=== PATIENT | female | born 1950 | race Hispanic/Latino ===

== ENCOUNTER → 2018-01-07 | Outpatient (CLI) | payer OTHER | END | disposition home or self-care (01) | LOC: OIH 10:31 | PROVIDERS: ATTEND Family Medicine | DX: M40.292 Other kyphosis, cervical region (principal) | CPT/HCPCS: 72040 ==

== ENCOUNTER → 2018-02-19 | Outpatient (CLI) | payer OTHER | END | disposition home or self-care (01) | LOC: OIH 11:14 | PROVIDERS: ATTEND Family Medicine | DX: M17.12 Unilateral primary osteoarthritis, left knee (principal) | CPT/HCPCS: 73562 ==

== ENCOUNTER 2018-08-06 20:45 | Emergency (ER) | payer OTHER | END 2018-08-06 23:35 | disposition home or self-care (01) | LOC: EDH 20:45 | DX: S80.11XA Contusion of right lower leg, initial encounter (principal); M25.551 Pain in right hip; M25.561 Pain in right knee; E11.9 Type 2 diabetes mellitus without complications; E78.5 Hyperlipidemia, unspecified; I10 Essential (primary) hypertension; Z90.710 Acquired absence of both cervix and uterus; W01.0XXA Fall on same level from slipping, tripping and stumbling without subsequent striking against object, initial encounter; Y93.89 Activity, other specified; Y92.89 Other specified places as the place of occurrence of the external cause; Y99.8 Other external cause status | CPT/HCPCS: 73502; 73560; 73590 ==

== ENCOUNTER → 2018-11-17 | Outpatient (CLI) | payer OTHER | END | disposition home or self-care (01) | LOC: OIH 10:24 | PROVIDERS: ATTEND Family Medicine | DX: M19.072 Primary osteoarthritis, left ankle and foot (principal); M77.32 Calcaneal spur, left foot; I70.0 Atherosclerosis of aorta; M47.815 Spondylosis without myelopathy or radiculopathy, thoracolumbar region; I10 Essential (primary) hypertension | CPT/HCPCS: 71046; 73610; 73630 ==

== ENCOUNTER 2019-01-03 05:09 | Emergency (ER) | payer OTHER ==
[2019-01-03] MEDS ORDERED: ONDANSETRON HCL 4 MG/2 ML VIAL ONE (05:51)
[2019-01-03] MEDS ORDERED: 0.9% SODIUM CHLORIDE 1000 ML IV BAG IV ONE (06:00)
[2019-01-03 06:29] LABS: CREATININE 0.9 mg/dL (0.5-1.5); POTASSIUM 3.7 mmol/L (3.5-5.1)
[2019-01-03 06:35] LABS: ALBUMIN 3.5 g/dL (3.5-5.0); BILIRUBIN,TOTAL 0.6 mg/dL (0.2-1.0)
[2019-01-03 07:39] LABS: BASOPHILS % (AUTO) 0.2 % (0.0-5.0); HEMATOCRIT 42.6 % (36-48); MEAN CORPUSCULAR HEMOGLOBIN 31.5 pg (27.0-33.0); MEAN CORPUSCULAR HGB CONC 33.3 g/dL (32.0-36.0); MEAN CORPUSCULAR VOLUME 94.6 fL (79-99); NEUTROPHILS % (AUTO) 85.8 % (40.0-77.0); PLATELET COUNT (AUTO) 245 K/uL (130-400); RED CELL DISTRIBUTION WIDTH 13.5 % (11.0-15.5)
== END 2019-01-03 10:05 | disposition home or self-care (01) ==
LOC: EDH 05:09
DX: K52.9 Noninfective gastroenteritis and colitis, unspecified (principal); E78.5 Hyperlipidemia, unspecified; I10 Essential (primary) hypertension; E11.9 Type 2 diabetes mellitus without complications; F32.9 Major depressive disorder, single episode, unspecified
CPT/HCPCS: 36415; 74176; 80053; 83690; 85025; 93005; 96361; 96374; 99284; J2405; J7030

== ENCOUNTER → 2019-08-27 | Outpatient (CLI) | payer OTHER | END | disposition home or self-care (01) | LOC: RAH 13:41 | PROVIDERS: ATTEND Family Medicine | DX: I70.211 Atherosclerosis of native arteries of extremities with intermittent claudication, right leg (principal); R60.0 Localized edema | CPT/HCPCS: 93971 ==

== ENCOUNTER 2019-08-30 11:42 | Emergency (ER) | payer OTHER ==
[2019-08-30] MEDS ORDERED: KETOROLAC TROMETHAMINE 30MG/ML ONE (12:10)
== END 2019-08-30 15:07 | disposition home or self-care (01) ==
LOC: EDH 11:42
DX: G89.29 Other chronic pain (principal); M79.651 Pain in right thigh; I10 Essential (primary) hypertension; E78.5 Hyperlipidemia, unspecified; E11.9 Type 2 diabetes mellitus without complications; F32.9 Major depressive disorder, single episode, unspecified
CPT/HCPCS: 72131; 72170; 96372; 99284; J1885

== ENCOUNTER → 2019-12-17 | Outpatient (CLI) | payer OTHER | END | disposition home or self-care (01) | LOC: OIH 11:05 | PROVIDERS: ATTEND Family Medicine | DX: M47.812 Spondylosis without myelopathy or radiculopathy, cervical region (principal); M89.38 Hypertrophy of bone, other site; I70.0 Atherosclerosis of aorta; I10 Essential (primary) hypertension | CPT/HCPCS: 71046; 72040 ==

== ENCOUNTER → 2019-12-23 | Outpatient (CLI) | payer OTHER | END | disposition home or self-care (01) | LOC: RAH 11:12 | PROVIDERS: ATTEND Family Medicine | DX: Z12.31 Encounter for screening mammogram for malignant neoplasm of breast (principal); R10.2 Pelvic and perineal pain; Z90.49 Acquired absence of other specified parts of digestive tract; Z90.710 Acquired absence of both cervix and uterus | CPT/HCPCS: 76856; 77067 ==

== ENCOUNTER → 2021-02-21 | Outpatient (CLI) | payer OTHER | END | disposition home or self-care (01) | LOC: OIH 10:54 | PROVIDERS: ATTEND Family Medicine | DX: I10 Essential (primary) hypertension (principal) | CPT/HCPCS: 71046 ==

== ENCOUNTER → 2021-07-31 | Outpatient (CLI) | payer OTHER | END | disposition home or self-care (01) | LOC: OIH 11:06 | PROVIDERS: ATTEND Family Medicine | DX: R07.9 Chest pain, unspecified (principal); M51.35 Other intervertebral disc degeneration, thoracolumbar region | CPT/HCPCS: 71046 ==

== ENCOUNTER → 2021-08-14 | Outpatient (CLI) | payer OTHER ==
[~2021-08-14] MED LIST: REGADENOSON 0.4 MG/5 ML PF SYG IVP SCH
== END | disposition home or self-care (01) ==
LOC: RAH 08:59
PROVIDERS: ATTEND Family Medicine
DX: I20.9 Angina pectoris, unspecified (principal); R07.9 Chest pain, unspecified
CPT/HCPCS: 78452; 93017; 96374; A9500 ×2; J2785

== ENCOUNTER 2022-06-24 14:35 | Emergency (ER) | payer OTHER ==
[~2022-06-24] VITALS: Ht 162.6 cm; Wt 81.6 kg
[2022-06-24 14:54] LABS: BASOPHILS % (AUTO) 0.2 % (0.0-5.0); EOSINOPHILS % (AUTO) 0.1 % (0.0-8.0); HEMATOCRIT 37.5 % (36-48); LYMPHOCYTES % (AUTO) 4.3 % (21.0-51.0); MEAN CORPUSCULAR HEMOGLOBIN 30.9 pg (27.0-33.0); MEAN CORPUSCULAR HGB CONC 33.9 g/dL (32.0-36.0); MEAN CORPUSCULAR VOLUME 91.2 fL (79-99); MONOCYTES % (AUTO) 2.6 % (3.0-13.0); NEUTROPHILS % (AUTO) 92.5 % (40.0-77.0); PLATELET COUNT (AUTO) 202 K/uL (130-400); RED BLOOD CELL COUNT(AUTO) 4.11 MIL/uL (4.00-5.50); RED CELL DISTRIBUTION WIDTH 12.9 % (11.0-15.5); WHITE BLOOD COUNT (AUTO) 12.2 K/uL (4.8-10.8)
[2022-06-24] MEDS ORDERED: ACETAMINOPHEN 500 MG TABLET PO ONE (15:00)
[2022-06-24] MEDS ORDERED: 0.9%NACL 1000ML 1,000 ML IV SCH (15:00)
[2022-06-24] MEDS ORDERED: IBUPROFEN 800 MG TAB PO ONE (15:00)
[2022-06-24 15:22] LABS: ALBUMIN 3.2 g/dL (3.5-5.0); CRP QUANTITATIVE 44.3 mg/L (0.00-9.0); POTASSIUM 3.9 mmol/L (3.5-5.1)
[2022-06-24 15:46] VITALS: BP 137/53
[2022-06-24 15:51] LABS: APPEARANCE,URINE CLOUDY (CLEAR); BILIRUBIN,URINE NEGATIVE (NEGATIVE); COLOR,URINE YELLOW (YELLOW); GLUCOSE, URINE (UA) NEGATIVE (NEGATIVE); KETONES,URINE NEGATIVE (NEGATIVE); LEUKOCYTE ESTERASE ,URINE MODERATE (NEGATIVE); NITRATE,URINE POSITIVE (NEGATIVE); OCCULT BLOOD,URINE MODERATE (NEGATIVE); PH,URINE 6.5 (5.0-8.0); PROTEIN,URINE 30 mg/dL (NEGATIVE); UROBILINOGEN,URINE 0.2 mg/dL (0.2-1.0)
[2022-06-24] MEDS ORDERED: CEFTRIAXONE 1G VIAL ONE (16:07)
[2022-06-24] MEDS ORDERED: CEPH500B PO (16:09)
[2022-06-24] MEDS ORDERED: ACET-2247 PO (16:09)
[2022-06-24] MEDS ORDERED: CEFTRIAXONE 1G VIAL IVP ONE (16:30)
[2022-06-24 16:43] LABS: BACTERIA,URINE Few /HPF (None Seen); MUCUS,URINE Rare LPF (None Seen); SQUAMOUS EPITHELIAL CELL,UR Rare /HPF (0-2); WBC,URINE 26-50 /HPF (0-1)
== END 2022-06-24 16:27 | disposition home or self-care (01) ==
LOC: EDH 14:35
DX: N39.0 Urinary tract infection, site not specified (principal); E86.0 Dehydration; E11.65 Type 2 diabetes mellitus with hyperglycemia; E66.9 Obesity, unspecified; Z20.822 Contact with and (suspected) exposure to COVID-19; Z68.30 Body mass index [BMI] 30.0-30.9, adult
CPT/HCPCS: 99284; 96374; 71045; 87635; 96361; 80053; 85025; 87040 ×2; 87077; 87088; 87186; 87804 ×2; 83605; 86140; 81001; 36415; C9803; J7030; J0696

== ENCOUNTER 2022-06-28 20:24 | Emergency (ER) | payer OTHER ==
[~2022-06-28 20:24] MED LIST changes: +ACET-2247 PO; +CEPH500B PO; -REGADENOSON 0.4 MG/5 ML PF SYG IVP SCH
== END 2022-06-28 20:27 | disposition left against medical advice (07) ==
LOC: EDH 20:24
DX: R51.9 Headache, unspecified (principal); R50.9 Fever, unspecified; Z53.21 Procedure and treatment not carried out due to patient leaving prior to being seen by health care provider

== ENCOUNTER → 2022-07-12 | Outpatient (CLI) | payer OTHER | END | disposition home or self-care (01) | LOC: RAH 13:21 | PROVIDERS: ATTEND Family Medicine | DX: Z12.31 Encounter for screening mammogram for malignant neoplasm of breast (principal) | CPT/HCPCS: 77067 ==

== ENCOUNTER → 2023-09-27 | Outpatient (CLI) | payer OTHER | END | disposition home or self-care (01) | LOC: RAH 11:40 | PROVIDERS: ATTEND Family Medicine | DX: Z12.31 Encounter for screening mammogram for malignant neoplasm of breast (principal) | CPT/HCPCS: 77067 ==

== ENCOUNTER 2023-11-02 11:14 | Emergency (ER) | payer OTHER ==
[~2023-11-02] VITALS: Ht 152.4 cm; Wt 79.4 kg
[2023-11-02 11:58] LABS: CREATININE 0.8 mg/dL (0.5-1.5); POTASSIUM 4.2 mmol/L (3.5-5.1)
[2023-11-02 12:03] LABS: ALBUMIN 3.8 g/dL (3.5-5.0); BILIRUBIN,TOTAL 0.5 mg/dL (0.2-1.0); TOTAL PROTEIN, SERUM 7.3 g/dL (6.0-8.3)
[2023-11-02 12:06] LABS: BASOPHILS # (AUTO) 0.02 K/uL (0.00-0.20); BASOPHILS % (AUTO) 0.3 % (0.0-5.0); EOSINOPHILS # (AUTO) 0.03 K/uL (0.00-0.70); EOSINOPHILS % (AUTO) 0.4 % (0.0-8.0); HEMATOCRIT 39.5 % (36-48); IMMATURE GRANULOCYTE ABSOLUTE 0.02 K/uL (0-1); LYMPHOCYTES # (AUTO) 1.4 K/uL (1.0-4.8); LYMPHOCYTES % (AUTO) 21.3 % (21.0-51.0); MEAN CORPUSCULAR HGB CONC 34.2 g/dL (32.0-36.0); MEAN CORPUSCULAR VOLUME 90.8 fL (79-99); MONOCYTES # (AUTO) 0.5 K/uL (0.1-1.0); MONOCYTES % (AUTO) 7.7 % (3.0-13.0); NEUTROPHILS # (AUTO) 4.7 K/uL (1.8-7.7); PLATELET COUNT (AUTO) 236 K/uL (130-400); RED BLOOD CELL COUNT(AUTO) 4.35 MIL/uL (4.00-5.50); RED CELL DISTRIBUTION WIDTH 13.1 % (11.0-15.5); WHITE BLOOD COUNT (AUTO) 6.8 K/uL (4.8-10.8)
[2023-11-02 12:11] LABS: APPEARANCE,URINE CLEAR (CLEAR); BILIRUBIN,URINE NEGATIVE (NEGATIVE); COLOR,URINE LIGHT-YELLOW (YELLOW); GLUCOSE, URINE (UA) NEGATIVE (NEGATIVE); KETONES,URINE NEGATIVE (NEGATIVE); LEUKOCYTE ESTERASE ,URINE 75 Leu/uL (NEGATIVE); NITRATE,URINE NEGATIVE (NEGATIVE); OCCULT BLOOD,URINE NEGATIVE (NEGATIVE); PROTEIN,URINE NEGATIVE (NEGATIVE); UROBILINOGEN,URINE 0.2 mg/dL (0.2-1.0)
[2023-11-02 12:12] LABS: ADD UA MICROSCOPIC YES
[2023-11-02 12:14] LABS: BACTERIA,URINE RARE /HPF (None Seen); RBC,URINE 0-1 /HPF (0-1); SQUAMOUS EPITHELIAL CELL,UR MOD /HPF (0-2)
[2023-11-02] MEDS ORDERED: NITROGLYCERIN 1GM OINT 1 INCH/1GM TD ONE (12:30)
[2023-11-02] MEDS ORDERED: AMLODIPINE 5 MG TAB PO ONE (14:30)
[2023-11-02] MEDS ORDERED: PREDNISONE 20 MG TABLET PO ONE (14:30)
[2023-11-02] MEDS ORDERED: MECLIZINE HCL 25 MG TABLET PO ONE (14:30)
[2023-11-02] MEDS ORDERED: AMLO5TAB4 PO (15:18)
[2023-11-02] MEDS ORDERED: MECL-302 PO (15:18)
[2023-11-02] MEDS ORDERED: MACR100 PO (15:18)
[2023-11-02] MEDS ORDERED: FLUT16H NASAL (15:18)
[2023-11-02] MEDS ORDERED: CEFTRIAXONE 1G VIAL IVPB ONE (15:30)
[2023-11-02 15:44] VITALS: BP 139/74; PULSE 68; RESP 18; O2SAT 99
== END 2023-11-02 15:43 | disposition home or self-care (01) ==
LOC: EDH 11:14
DX: N39.0 Urinary tract infection, site not specified (principal); H81.391 Other peripheral vertigo, right ear; I10 Essential (primary) hypertension; E10.9 Type 1 diabetes mellitus without complications; E78.00 Pure hypercholesterolemia, unspecified; Z79.899 Other long term (current) drug therapy
CPT/HCPCS: 99285; 96374; 70450; 71045; 84484; 80053; 85025; 87088; 81001; 36415; 93005; J0696

== ENCOUNTER 2024-08-30 19:05 | Emergency (ER) | payer OTHER ==
[~2024-08-30] VITALS: Ht 152.4 cm; Wt 72.6 kg
[~2024-08-30 19:05] MED LIST changes: +AMLO5TAB4 PO; +FLUT16H NASAL; +MACR100 PO; +MECL-302 PO
--- NOTE | 2024-08-30 19:13 | ERN ---
ED Note History of Present Illness Stated Complaint: FEVER, N/V/D ABD PAIN Chief Complaint: Sepsis Time Seen by MD: 19:07 Dictation: PATIENT IS A 74-YEAR-OLD FEMALE HERE WITH NAUSEA VOMITING AND DIARRHEA WITH FEVER CHILLS AND BILATERAL FLANK PAIN FOR TWO DAYS. SHE STATES IT GOT WORSE TODAY. , DENIES ANY ABDOMINAL PAIN NO SORE THROAT NO COUGH NO CHEST PAIN. Allergies: Coded Allergies: No Known Allergies (Unverified Allergy, Unknown, 08/30/19) No Known Drug Allergies (Unverified Allergy, Unknown, 06/24/22) Home Meds Active Scripts Fluticasone Propionate (Flonase Nasal [place]) 50 Mcg/Actuation [place], 2 SPRAY NASAL DAILY for 10 Days, #1 SPRAY 0 Refills Prov:HEMANTH MIRELES MD 11/02/23 Nitrofurantoin/Nitrofuran Mac (Macrobid) 100 Mg Cap, 1 CAP PO BID for 7 Days, #14 CAP 0 Refills Prov:HEMANTH MIRELES MD 11/02/23 Meclizine HCl (Meclizine HCl) 25 Mg Tablet, 25 MG PO TIDP PRN for DIZZINESS, #30 TAB 0 Refills Prov:HEMANTH MIRELES MD 11/02/23 Amlodipine Besylate (Norvasc 5Mg Tab) 5 Mg Tablet, 5 MG PO DAILY, #10 TAB 0 Refills Prov:HEMANTH MIRELES MD 11/02/23 Acetaminophen (Tylenol) 325 Mg Tablet, 650 MG PO Q4H, #50 TAB Prov:JUAN WINN 06/24/22 Cephalexin Monohydrate (Keflex) 500 Mg Cap, 500 MG PO TID for 7 Days, #21 CAP Prov:JUAN WINN 06/24/22 Past Medical History Past Medical History: Asthma, Diabetes-Type I, High Cholesterol, Hypertension Surgical History: Unknown PSYCH History: no pertinent psych hx Family History: Negative Social History: Negative History: Not Applicable RN Note Reviewed/Agreed w/PFSH: Yes Review of System Dictation CONSTITUTIONAL: NEGATIVE EXCEPT FOR HPI FEVER CHILLS HEAD/FACE: NEGATIVE EXCEPT FOR HPI EENT: NEGATIVE EXCEPT FOR HPI RESPIRATORY: NEGATIVE EXCEPT FOR HPI GASTROINTESTINAL/ABDOMINAL: NEGATIVE EXCEPT FOR HPI BILATERAL FLANK PAIN WITH NAUSEA VOMITING AND DIARRHEA GENITOURINARY: NEGATIVE EXCEPT FOR HPI MUSCULOSKELETAL: NEGATIVE EXCEPT FOR HPI INTEGUMENTARY: NEGATIVE EXCEPT FOR HPI NEUROLOGICAL/PSYCH: NEGATIVE EXCEPT FOR HPI HEMATOLOGIC/LYMPHATIC: NEGATIVE EXCEPT FOR HPI ALL SYSTEMS NEGATIVE, EXCEPT NOTED ABOVE. 13 POINT REVIEW OF SYSTEMS ASSESSED AND ALL NEGATIVE EXCEPT FOR ABOVE. Initial Vital Sign VS Vital Signs Date Time Temp Pulse Resp B/P (MAP) Pulse Ox O2 Delivery O2 Flow Rate FiO2 08/30/24 19:07 102.7 96 20 175/81 97 Room Air 08/30/24 19:35 0 21 Physical Exam Dictation VITAL SIGNS REVIEWED GENERAL APPEARANCE: ALERT, ORIENTED X 3, MILD ACUTE DISTRESS, WELL DEVELOPED, NOURISHED. HEAD AND FACE: NON-TRAUMATIC. EYES: PERRL, PINK CONJUNCTIVAS, EYELID NO TRAUMA, ANTERIOR CHAMBER WITH ARCUS SENILIS. EARS: PINNAS INTACT AND NO SIGNS OF TRAUMA OR ERYTHEMA EAR CANALS CLEAR AND NO DISCHARGE TM NO ERYTHEMA NOSE: NO DISCHARGE, NO BLEEDING. OROPHARYNX: MOUTH NORMAL, TONGUE PINK, PHARYNX CLEAR,NO ERYTHEMA, TONSILS NO EXUDATES, NO ABSCESSES NOTED, MUCOUS MEMBRANE MOIST NECK: SUPPLE, NON-TENDER, NO THYROMEGALY, NO MASSES, NO JVD, NO BRUITS BREAST:DEFERRED CHEST:NO TENDERNESS, NO CREPITUS, NO PARADOXICAL MOVEMENT, NO RETRACTIONS LUNGS:CLEAR, WELL-VENTILATED, SYMMETRIC, NO RALES, NO WHEEZING, NO RHONCHI, NO STRIDOR, GOOD BREATH SOUNDS BILATERALLY HEART: REGULAR RATE, REGULAR RHYTHM, NO MURMUR, NO GALLOPS VASCULAR: NO PERIPHERAL EDEMA, ABDOMEN: SOFT, POSITIVE BOWEL SOUNDS, NONDISTENDED, NO GUARDING, NONTENDER, NO REBOUND, NO MASSES NO HEPATOMEGALY, NO SPLENOMEGALY, NO FLOWERS'S SIGN, NO HERNIAS. NO FOCAL TENDERNESS, NEGATIVE CVAT BILATERALLY RECTAL: DEFERRED GENITAL: DEFERRED NEUROLOGICAL: NORMAL SPEECH, MOTOR FUNCTION INTACT, SENSORY FUNCTION INTACT MUSCULOSKELETAL: NECK NONTENDER, FULL RANGE OF MOTION, BACK NONTENDER, FULL RANGE OF MOTION, EXTREMITIES: NONTENDER, FULL RANGE OF MOTION SKIN: COLOR PINK, DRY, NO TURGOR, NO RASH, NO LACERATIONS, NO ABRASIONS, NO CONTUSIONS. LYMPHATIC: DEFERRED Results (Laboratory/Radiology) Laboratory/Radiology Laboratory Tests Test 08/30/24 19:20 08/30/24 19:39 08/30/24 20:51 White Blood Count 8.2 K/uL (4.8-10.8) Red Blood Count 4.00 MIL/uL (4.00-5.50) Hemoglobin 12.5 g/dL (12.0-16.0) Hematocrit 36.0 % (36-48) Mean Corpuscular Volume 90.0 fL (79-99) Mean Corpuscular Hemoglobin 31.3 pg (27.0-33.0) Mean Corpuscular Hemoglobin Concent 34.7 g/dL (32.0-36.0) Red Cell Distribution Width 12.6 % (11.0-15.5) Platelet Count 210 K/uL (130-400) Mean Platelet Volume 10.2 fL (7.5-10.5) Immature Granulocyte % (Auto) 0.4 % (0-1) Neutrophils (%) (Auto) 77.7 % (40.0-77.0) H Lymphocytes (%) (Auto) 16.3 % (21.0-51.0) L Monocytes (%) (Auto) 5.0 % (3.0-13.0) Eosinophils (%) (Auto) 0.2 % (0.0-8.0) Basophils (%) (Auto) 0.4 % (0.0-5.0) Neutrophils # (Auto) 6.4 K/uL (1.8-7.7) Lymphocytes # (Auto) 1.3 K/uL (1.0-4.8) Monocytes # (Auto) 0.4 K/uL (0.1-1.0) Eosinophils # (Auto) 0.02 K/uL (0.00-0.70) Basophils # (Auto) 0.03 K/uL (0.00-0.20) Absolute Immature Granulocyte (auto 0.03 K/uL (0-1) Nucleated Red Blood Cells 0.0 % (0.0-0.19) Sodium Level 137 mmol/L (136-145) Potassium Level 4.7 mmol/L (3.5-5.1) Chloride Level 101 mmol/L (101-111) Carbon Dioxide Level 28 mmol/L (21-32) Blood Urea Nitrogen 20 mg/dL (7-18) H Creatinine 1.6 mg/dL (0.5-1.0) H Glomerular Filtration Rate Calc 33 mL/min (>90) Random Glucose 154 mg/dL (70-105) H Whole Blood Ketones Quantitative 0.4 mmol/L (0.0-0.6) Lactic Acid Level 3.0 mmol/L (0.8-2.5) H 2.1 mmol/L (0.8-2.5) Total Calcium 9.1 mg/dL (8.5-10.1) Influenza Type A Antigen Negative For Type A Influenza Type B Antigen Negative For Type B SARS-CoV-2 Antigen (Rapid) PRESUMPTIVE NEGATIVE Group A Streptococcus Rapid positive (NEGATIVE) *A Urine Color LIGHT-YELLOW (YELLOW) Urine Appearance CLEAR (CLEAR) Urine pH 5.5 (5.0-8.0) Urine Specific [place] 1.005 (1.001-1.031) Urine Protein NEGATIVE mg/dL (NEGATIVE) Urine Glucose (UA) NEGATIVE mg/dL (NEGATIVE) Urine Ketones NEGATIVE mg/dL (NEGATIVE) Urine Occult Blood NEGATIVE (NEGATIVE) Urine Nitrate NEGATIVE (NEGATIVE) Urine Bilirubin NEGATIVE mg/dL (NEGATIVE) Urine Urobilinogen 0.2 mg/dL (0.2-1.0) Urine Leukocyte Esterase 250 Jori/uL (NEGATIVE) H Urine RBC 0-1 /HPF (0-1) Urine WBC 26-50 /HPF (0-1) H Urine Squamous Epithelial Cells RARE /HPF (0-2) Urine Bacteria RARE /HPF (None Seen) Labs Reviewed?: Yes ED Course ED Course Orders Procedure Category Date Status Time Ketone Blood LAB 08/30/24 Complete Quantitative 19:09 Cbc With Differential LAB 08/30/24 Complete 19:09 Blood Cult LUIS 08/30/24 In Process 19:09 Urinalysis Profile LAB 08/30/24 Complete 19:09 Lactic Acid LAB 08/30/24 Complete 19:09 Ceftriaxone 2gm Vial PHA 08/30/24 Complete (Rocephin 2gm Inj) 19:30 Basic Metabolic Panel LAB 08/30/24 Complete 19:09 0.9%Nacl 1000ml (Ns PHA 08/30/24 Complete 1000ml) 19:30 Ketorolac PHA 08/30/24 Complete Tromethamine 15mg/Ml 19:30 Ondansetron 4mg Inj PHA 08/30/24 Complete (Zofran 4mg Inj) 19:30 Covid19 (Sars Antigen LAB 08/30/24 Complete Rapid) 19:12 Influenza Type A & B, LAB 08/30/24 Complete Rapid 19:12 Rapid (Group A Strep) LAB 08/30/24 Complete 19:20 0.9%Nacl 1000ml (Ns PHA 08/30/24 In Process 1000ml) 20:00 Culture Urine LUIS 08/30/24 In Process 20:10 Lactic Acid LAB 08/30/24 Complete 20:39 Amox/Clav 875/125mg PHA 08/30/24 In Process Tab (Augmentin 875-1 21:30 Current Medications Medications (Trade) Dose Ordered Sig/Marilia Route PRN Reason Start Time Stop Time Status Last Admin Dose Admin Amoxicillin/ Clavulanate Potassium (Augmentin 875-125 Tablet) 1 each ONCE ONCE PO 08/30/24 21:30 08/30/24 21:31 Ceftriaxone Sodium (Rocephin 2gm Inj) 2 gm ONCE ONCE IVPB 08/30/24 19:30 08/30/24 19:31 DC 08/30/24 19:47 Ketorolac Tromethamine (toRADol) 15 mg ONCE ONCE IV 08/30/24 19:30 08/30/24 19:31 DC 08/30/24 19:46 Ondansetron HCl (zoFRAN 4MG INJ) 4 mg ONCE ONCE IVP 08/30/24 19:30 08/30/24 19:31 DC 08/30/24 19:46 Sodium Chloride 1,000 ml @ 0 mls/hr ONCE ONCE IV 08/30/24 19:30 08/30/24 19:31 DC 08/30/24 19:47 Sodium Chloride 2,178 ml @ 726 mls/hr ONCE ONCE IV 08/30/24 20:00 08/30/24 22:59 08/30/24 20:42 Vital Signs Date Time Temp Pulse Resp B/P (MAP) Pulse Ox O2 Delivery O2 Flow Rate FiO2 08/30/24 19:35 102.7 24 18 158/84 98 Room Air* 0 21 08/30/24 19:07 102.7 96 20 175/81 97 Room Air 2102 PATIENT IS HEMODYNAMICALLY STABLE, LACTIC ACID 2.1 AFTER TREATMENT OF 30 PER KILOS FLUIDS AND2 G OF ROCEPHIN. ONLY SIGNIFICANT CLINICAL FINDINGS ARE STREPTOCOCCAL PHARYNGITIS PATIENT WE WILL BE DISCHARGED HOME WITH A [id number] P.O. B.I.D. BLOOD PRESSURE 135/82/HEART RATE 80/PATIENT AFEBRILE/SATURATIONS 98 99%. PATIENT DOES NOT WANT TO BE ADMITTED TO THE HOSPITAL AND AGREES SHE WILL COME BACK IF SHE FEELS WORSE OTHERWISE SHE SAID SHE WILL SEE HER PRIMARY CARE DOCTOR. Medical Decision Making MDM MDM: DIFFERENTIAL DIAGNOSIS: SEPSIS/DKA/ELECTROLYTE IMBALANCE/DEHYDRATION/PYELONEPHROSIS/UTI RATIONALE: TESTS CONSIDERED AND ORDERED SECONDARY TO SHARED DECISION MAKING INCLUDE: LABS/UA PREVIOUS OUTSIDE RECORDS REVIEWED: OLD ER VISITS. REVIEWED RISK OF COMPLICATION AND/OR MORBIDITY OR MORTALITY OF PATIENT MANAGEMENT: NONE NONE MEDICATIONS-PER MEDICATION RECONCILIATION NEED FOR HOSPITALIZATION: PATIENT DOES NOT MEET CRITERIA FOR HOSPITALIZATION. NO NEED FOR EMERGENCY MAJOR/MINOR SURGERY: NO THERE ARE NO SOCIAL CONCERNS WITH THIS PATIENT. PRESCRIPTION DRUG MANAGEMENT AUGMENTIN/TYLENOL PRESCRIPTIONS WILL INCLUDE SYMPTOMATIC CARE PATIENT'S PRIOR EXTERNAL MEDICAL RECORDS FROM OTHER ER VISITS WERE REVIEWED BY ME INDICATED. PRIOR TESTING AND RESULTS FROM PREVIOUS VISITS WERE REVIEWED. PRIOR TESTS WERE TAKEN INTO ACCOUNT WITH MEDICAL DECISION MAKING AND RESOURCE UTILIZATION, INDEPENDENT HISTORIAN/HISTORIANS WERE USED TO OBTAIN COMPLETE MEDICAL HISTORY. I INDEPENDENTLY INTERPRETED THE TEST THAT WERE PERFORMED, RESULTS WERE REVIEWED BY ME AND CONSIDERED FINDINGS ON RADIOLOGY IF ORDERED. MEDICAL MANAGEMENT AND EXAMINATION INTERPRETATION DISCUSSIONS WERE HAD BY ME WITH OTHER QUALIFIED HEALTHCARE PROFESSIONALS INDICATED FOR THE PATIENT'S CARE. DX & DISP Disposition: Discharge Departure Impression: Primary Impression: Acute streptococcal tonsillitis Additional Impressions: Chronic kidney disease, Uncontrolled diabetes mellitus, Sepsis Condition: Stable Scripts Amoxicillin/Potassium Clav (Amox Tr-K Clv 875-125 mg Tab) 875 Mg-125 Mg Tablet 1 EACH PO BID for 7 Days, #14 TAB 0 Refills Prov: YOLETTE FLAHERTY NP 08/30/24 Additional Instructions: FOLLOW-UP WITH PRIMARY CARE PROVIDER IN 1 TO 2 DAYS. TAKE MEDICATIONS DIRECTED HERE IN THE EMERGENCY ROOM. OKAY TO CONTINUE HOME MEDICATIONS UNLESS OTHERWISE DISCUSSED DURING YOUR VISIT IN THE EMERGENCY ROOM TODAY. RETURN TO YOUR NEAREST EMERGENCY ROOM IF SYMPTOMS WORSEN OR IF THERE IS NO IMPROVEMENT. CALL 911 IF YOU NEED IMMEDIATE ASSISTANCE. TAKE TYLENOL OR MOTRIN [id number] NEEDED AND IF NO CONTRAINDICATIONS ARE PRESENT. INCREASE ORAL HYDRATION. A WOUND CULTURE OR URINE CULTURE WAS ORDERED HERE IN THE EMERGENCY ROOM DEPARTMENT PLEASE FOLLOW-UP WITH PRIMARY CARE PROVIDER AND ADVISE THEM TO GET REPEAT PORTS FROM OUR FACILITY. IF YOU HAD ANY ELOISE WRAP/SPLINTS THAT WERE APPLIED HERE, PLEASE DO NOT REMOVE THEM UNTIL YOU SEE YOUR PRIMARY CARE OR SPECIALTY. TAKE ANTIBIOTICS DIRECTED UNTIL GONE. , INCREASE YOUR WATER INTAKE. SEE YOUR PRIMARY CARE DOCTOR IN 1-2 DAYS. Referrals: WALLACE KENNEY MD (PCP) Time of Disposition: 21:07 I have reviewed the case, and I agree with, Diagnosis and Plan YOLETTE FLAHERTY NP Aug 30, 2024 19:13
[2024-08-30] MEDS: ketOROlac 15MG/ML VIAL (15MG/ML) IV ONE (19:46)
[2024-08-30] MEDS: ondanSETRON 4MG INJ IVP ONE (19:46)
[2024-08-30] MEDS: CEFTRIAXONE 2GM VIAL IVPB ONE (19:47)
[2024-08-30] MEDS: 0.9%NACL 1000ML 1,000 ML IV ONE (19:47)
[2024-08-30 19:48] LABS: BASOPHILS # (AUTO) 0.03 K/uL (0.00-0.20); BASOPHILS % (AUTO) 0.4 % (0.0-5.0); EOSINOPHILS # (AUTO) 0.02 K/uL (0.00-0.70); EOSINOPHILS % (AUTO) 0.2 % (0.0-8.0); IMMATURE GRANULOCYTE ABSOLUTE 0.03 K/uL (0-1); LYMPHOCYTES # (AUTO) 1.3 K/uL (1.0-4.8); LYMPHOCYTES % (AUTO) 16.3 % (21.0-51.0); MEAN CORPUSCULAR HEMOGLOBIN 31.3 pg (27.0-33.0); MEAN CORPUSCULAR HGB CONC 34.7 g/dL (32.0-36.0); MONOCYTES # (AUTO) 0.4 K/uL (0.1-1.0); NEUTROPHILS # (AUTO) 6.4 K/uL (1.8-7.7); NEUTROPHILS % (AUTO) 77.7 % (40.0-77.0); PLATELET COUNT (AUTO) 210 K/uL (130-400); RED CELL DISTRIBUTION WIDTH 12.6 % (11.0-15.5); WHITE BLOOD COUNT (AUTO) 8.2 K/uL (4.8-10.8)
[2024-08-30 19:58] LABS: CREATININE 1.6 mg/dL (0.5-1.0); POTASSIUM 4.7 mmol/L (3.5-5.1)
[2024-08-30 20:09] LABS: APPEARANCE,URINE CLEAR (CLEAR); BILIRUBIN,URINE NEGATIVE (NEGATIVE); COLOR,URINE LIGHT-YELLOW (YELLOW); GLUCOSE, URINE (UA) NEGATIVE (NEGATIVE); KETONES,URINE NEGATIVE (NEGATIVE); LEUKOCYTE ESTERASE ,URINE 250 Leu/uL (NEGATIVE); NITRATE,URINE NEGATIVE (NEGATIVE); OCCULT BLOOD,URINE NEGATIVE (NEGATIVE); PH,URINE 5.5 (5.0-8.0); PROTEIN,URINE NEGATIVE (NEGATIVE); UROBILINOGEN,URINE 0.2 mg/dL (0.2-1.0)
[2024-08-30 20:10] LABS: ADD UA MICROSCOPIC YES
[2024-08-30 20:12] LABS: BACTERIA,URINE RARE /HPF (None Seen); MUCUS,URINE RARE LPF (None Seen); RBC,URINE 0-1 /HPF (0-1); SQUAMOUS EPITHELIAL CELL,UR RARE /HPF (0-2); WBC,URINE 26-50 /HPF (0-1)
[2024-08-30 20:15] LABS: INFLUENZA TYPE A Negative For Type A (NEGATIVE); INFLUENZA TYPE B Negative For Type B (NEGATIVE)
[2024-08-30 20:16] LABS: COVID19 (SARS ANTIGEN RAPID) PRESUMPTIVE NEGATIVE (NEGATIVE)
[2024-08-30] MEDS: 0.9%NACL 1000ML 2,178 ML IV ONE (20:42)
[2024-08-30] MEDS ORDERED: AMOX1TAB16 PO (21:17)
[2024-08-30 21:18] VITALS: BP 138/59; PULSE 79; RESP 18; TEMP 99; O2SAT 96
[2024-08-30] MEDS: AMOX/CLAV 875/125MG TAB PO ONE (21:24)
== END 2024-08-30 21:34 | disposition home or self-care (01) ==
LOC: EDH 19:05
DX: A41.9 Sepsis, unspecified organism (principal); J03.00 Acute streptococcal tonsillitis, unspecified; I12.9 Hypertensive chronic kidney disease with stage 1 through stage 4 chronic kidney disease, or unspecified chronic kidney disease; E11.22 Type 2 diabetes mellitus with diabetic chronic kidney disease; N18.9 Chronic kidney disease, unspecified; E11.65 Type 2 diabetes mellitus with hyperglycemia; E78.00 Pure hypercholesterolemia, unspecified; J45.909 Unspecified asthma, uncomplicated; Z20.822 Contact with and (suspected) exposure to COVID-19; Z79.899 Other long term (current) drug therapy
CPT/HCPCS: 99284; 96365; 96375; 87426; 80048; 85025; 87040 ×2; 87086 ×2; 87186; 87880; 87804 ×2; 83605 ×2; 82010; 81001; 36415; J7030 ×3; J0696; J2405; J1885

== ENCOUNTER 2024-12-01 21:36 | Emergency (ER) | payer OTHER ==
[~2024-12-01] VITALS: Ht 152.4 cm; Wt 74.4 kg
[~2024-12-01 21:36] MED LIST changes: +AMOX1TAB16 PO
--- NOTE | 2024-12-01 22:08 | ERN ---
ED Note History of Present Illness Stated Complaint: C/O EPIGASTRIC PAIN W/NAUSEA, W/LEFT SHOULDER PAIN Chief Complaint: Abdominal Pain Time Seen by MD: 21:55 Dictation: This is a very pleasant 74-year-old female who presented to the emergency room with complaints of 2-3 days of epigastric pain associated with nausea. She also reported left shoulder pain which has been going on for awhile. Temperature 98.2 pulse 81 respirations 20 blood pressure 196/96 at presentation pulse oximetry 98% on room air Her chronic medical problems include diabetes mellitus, hypertension, hypercholesterolemia, obesity Allergies: Coded Allergies: No Known Allergies (Unverified Allergy, Unknown, 08/30/19) No Known Drug Allergies (Unverified Allergy, Unknown, 06/24/22) Home Meds Active Scripts Amoxicillin/Potassium Clav (Amox Tr-K Clv 875-125 mg Tab) 875 Mg-125 Mg Tablet, 1 EACH PO BID for 7 Days, #14 TAB 0 Refills Prov:YOLETTE FLAHERTY NP 08/30/24 Fluticasone Propionate (Flonase Nasal [place]) 50 Mcg/Actuation [place], 2 SPRAY NASAL DAILY for 10 Days, #1 SPRAY 0 Refills Prov:HEMANTH MIRELES MD 11/02/23 Nitrofurantoin/Nitrofuran Mac (Macrobid) 100 Mg Cap, 1 CAP PO BID for 7 Days, #14 CAP 0 Refills Prov:HEMANTH MIRELES MD 11/02/23 Meclizine HCl (Meclizine HCl) 25 Mg Tablet, 25 MG PO TIDP PRN for DIZZINESS, #30 TAB 0 Refills Prov:HEMANTH MIRELES MD 11/02/23 Amlodipine Besylate (Norvasc 5Mg Tab) 5 Mg Tablet, 5 MG PO DAILY, #10 TAB 0 Refills Prov:HEMANTH MIRELES MD 11/02/23 Acetaminophen (Tylenol) 325 Mg Tablet, 650 MG PO Q4H, #50 TAB Prov:JUAN WINN 06/24/22 Cephalexin Monohydrate (Keflex) 500 Mg Cap, 500 MG PO TID for 7 Days, #21 CAP Prov:JUAN WINN 06/24/22 Past Medical History Past Medical History: Diabetes-Type II, Hypertension, Hypotension Surgical History: Unknown Family History: Negative Social History: Negative History: Not Applicable RN Note Reviewed/Agreed w/PFSH: Yes Review of System Dictation Constitutional: Negative for fever,chills, and weight loss Eyes: Negative for injury, pain,redness, and discharge ENT: Negative for injury,pain or swelling Cardiovascular: Negative for chest pain, palpitations, and edema Respiratory: Negative for shortness of breath, cough, and wheezing, Abdomen/GI: Positive for abdominal pain, nausea, vomiting, denies diarrhea, and constipation Back: Negative for injury and pain : Negative for injury, bleeding and discharge MS/Extremity: Negative for injury and deformity Skin: Negative for rash, and discoloration Neuro: Negative for headache, weakness, numbness, tingling, and seizure Psych: Negative for suicide ideation, homicidal ideation, and hallucinations Initial Vital Sign VS Vital Signs Date Time Temp Pulse Resp B/P (MAP) Pulse Ox O2 Delivery O2 Flow Rate FiO2 12/01/24 21:38 98.2 81 20 196/96 98 Physical Exam Dictation General: awake, alert, NAD Head/Face: Normocephalic, atraumatic Eyes: PERRL, EOMI, vision at baseline ENT: oral cavity clear, TMs clear, no signs of infection Neck: Trachea midline, supple, no nuchal rigidity Cardiovascular: RRR, normal S1/S2, No MRGs, no JVD Respiratory: CTAB, no respiratory distress, No rales or wheezes Abdomen: Soft, non-tender, non-distended, normal bowel sounds, no guarding or rebound. Skin: Warm, dry, normal turgor, no rash MS/Extremity: Pulses equal, no cyanosis, neurovascular intact, FROM Neuro: COAx4, GCS 15, strength 5/5, CN 2-12 intact, normal cerebellar exam, normal gait, Psych: Normal behavior, mood, and affect normal Extremities-trace edema without any palpable cords, Homans sign is negative Results (Laboratory/Radiology) Laboratory/Radiology Laboratory Tests Test 12/01/24 22:17 White Blood Count 8.7 K/uL (4.8-10.8) Red Blood Count 4.50 MIL/uL (4.00-5.50) Hemoglobin 14.0 g/dL (12.0-16.0) Hematocrit 41.3 % (36-48) Mean Corpuscular Volume 91.8 fL (79-99) Mean Corpuscular Hemoglobin 31.1 pg (27.0-33.0) Mean Corpuscular Hemoglobin Concent 33.9 g/dL (32.0-36.0) Red Cell Distribution Width 12.5 % (11.0-15.5) Platelet Count 253 K/uL (130-400) Mean Platelet Volume 10.5 fL (7.5-10.5) Immature Granulocyte % (Auto) 0.3 % (0-1) Neutrophils (%) (Auto) 53.1 % (40.0-77.0) Lymphocytes (%) (Auto) 37.7 % (21.0-51.0) Monocytes (%) (Auto) 7.0 % (3.0-13.0) Eosinophils (%) (Auto) 1.4 % (0.0-8.0) Basophils (%) (Auto) 0.5 % (0.0-5.0) Neutrophils # (Auto) 4.6 K/uL (1.8-7.7) Lymphocytes # (Auto) 3.3 K/uL (1.0-4.8) Monocytes # (Auto) 0.6 K/uL (0.1-1.0) Eosinophils # (Auto) 0.12 K/uL (0.00-0.70) Basophils # (Auto) 0.04 K/uL (0.00-0.20) Absolute Immature Granulocyte (auto 0.03 K/uL (0-1) Nucleated Red Blood Cells 0.0 % (0.0-0.19) Sodium Level 141 mmol/L (136-145) Potassium Level 4.0 mmol/L (3.5-5.1) Chloride Level 101 mmol/L (101-111) Carbon Dioxide Level 33 mmol/L (21-32) H Blood Urea Nitrogen 18 mg/dL (7-18) Creatinine 1.0 mg/dL (0.5-1.0) Glomerular Filtration Rate Calc 58 mL/min (>90) Random Glucose 174 mg/dL (70-105) H Total Calcium 9.8 mg/dL (8.5-10.1) Total Bilirubin 0.4 mg/dL (0.2-1.0) Aspartate Amino Transf (AST/SGOT) 15 U/L (10-37) Alanine Aminotransferase (ALT/SGPT) 31 U/L (12-78) Alkaline Phosphatase 63 U/L (50-136) Troponin I High Sensitivity 5 ng/L (4-50) Total Protein 7.5 g/dL (6.0-8.3) Albumin 3.7 g/dL (3.5-5.0) Lipase 40 U/L (16-77) Labs Reviewed?: Yes ED Course ED Course Orders Procedure Category Date Status Time Cbc With Differential LAB 12/01/24 Complete 22: Comprehensive LAB 12/01/24 Complete Metabolic Panel 22: Troponin I High LAB 12/01/24 Complete Sensitivity 22:02 Urinalysis Profile LAB 12/01/24 Logged 22: 12 Lead Ekg Tracing- EKG 12/01/24 Complete Technical 22: Chest 1vw RAD 12/01/24 Taken 22: Lipase LAB 12/01/24 Complete 22:02 Vital Signs Date Time Temp Pulse Resp B/P (MAP) Pulse Ox O2 Delivery O2 Flow Rate FiO2 12/01/24 21:38 98.2 81 20 196/96 98 We will perform diagnostic labs, imaging and administer medications according to the patient's complaint. Once the results are available, will review and personally interpreted the labs to rule out any acute life-threatening emergency the trach require immediate intervention and treatment. I will then re-evaluate the patient after treatment and diagnostic exams have return to determine whether the patient requires any further testing, can safely be discharged home or need further admission to hospital for additional treatment and evaluation. Labs reviewed CBC BNP 7 with a normal limits lipase is 40 chest x-ray is unremarkable I had a long discussion with the patient and her daughter about possible gastroesophageal reflux or perhaps a viral gastroenteritis A trial of PPI over the next 30 days in the meanwhile to follow up with primary care physician and get a GI eval if her symptoms continue. They verbalized full understanding Medical Decision Making MDM MDM: Differential diagnosis: Hiatal hernia, gastroesophageal reflux disease, biliary colic, peptic ulcer disease Rationale: Tests considered and ordered secondary to shared decision making include: Previous outside records reviewed: Old ER visits. Risk of complication and/or morbidity or mortality of patient management: None Medications-Per medication reconciliation Need for hospitalization: Patient does not meet criteria for hospitalization. Need for emergency major/minor surgery: No There are no social concerns with this patient. Prescription drug management Prescriptions will include symptomatic care Patient's prior external medical records from other ER visits were reviewed by me as indicated. Prior testing and results from previous visits were reviewed. Prior tests were taken into account with medical decision making and resource utilization, independent historian/historians were used to obtain complete medical history. I independently interpreted the test that were performed, results were reviewed by me and considered findings on radiology if ordered. Medical management and examination interpretation discussions were had by me with other qualified healthcare professionals as indicated for the patient's care. Problem List Problem List: (1) Uncontrolled hypertension (2) Chronic kidney disease (3) Uncontrolled diabetes mellitus (4) Obesity DX & DISP Disposition: Discharge Departure Impression: Primary Impression: Uncontrolled hypertension Additional Impressions: Chronic kidney disease, Obesity, Uncontrolled diabetes mellitus, Gastroesophageal reflux disease Condition: Stable Scripts Omeprazole (Omeprazole) 40 Mg Capsule.dr 1 CAP PO DAILY for 30 Days, #30 CAP 0 Refills Prov: PLACIDO MONCADA MD 12/02/24 Additional Instructions: Patient and the caregiver have been informed of all the diagnostic tests and the imaging conducted during the today's visit to the emergency room and has verbalized understanding of the results I have personally reviewed and interpreted all diagnostic exams performed here in the ER today as well as the vital signs documented by the nursing staff. The patient is now being discharged to home and should follow up with the primary care physician or the specialist as directed by the ER staff. Follow-up with primary care provider in 1 to 2 days. Take medications as directed here in the emergency room. Okay to continue home medications unless otherwise discussed during your visit in the emergency room today. Return to your nearest emergency room if symptoms worsen or if there is no improvement. Call 911 if you need immediate assistance. Take Tylenol or Motrin ove [id number] as needed and if no contraindications are present. Increase oral hydration. A wound culture or urine culture was ordered here in the emergency room department please follow-up with primary care provider and advise them to get repeat ports from our facility. If you had any [place] wrap/splints that were applied here, please do not remove them until you see your primary care or specialty. Referrals: WALLACE KENNEY MD (PCP) PLACIDO MONCADA MD Dec 01, 2024 22:08
--- NOTE | 2024-12-01 22:20 | EKG ---
[facility] Test Date: 2024-12-01 Test Time: 22:18:42 Pat Name: RUTH BOWEN Department: ED Room: Gender: F Butcher Fish: [id number] Requested By: PLACIDO MONCADA Order Number: [id number] Reading MD: Pierre Allen Measurements Intervals [place] Rate: 67 P: 33 [place]: 138 QRS: -4 QRSD: 108 T: 59 QT: 421 QTc: 445 Interpretive Statements Sinus rhythm Compared to ECG 11/02/2023 11:32:02 No significant changes Electronically Signed On 12-04-2024 17:34:12 AIR DIRECTOR by Pierre Allen Please click the below link to view image of tracing.
[2024-12-01 23:11] LABS: BASOPHILS # (AUTO) 0.04 K/uL (0.00-0.20); BASOPHILS % (AUTO) 0.5 % (0.0-5.0); EOSINOPHILS # (AUTO) 0.12 K/uL (0.00-0.70); EOSINOPHILS % (AUTO) 1.4 % (0.0-8.0); HEMATOCRIT 41.3 % (36-48); IMMATURE GRANULOCYTE ABSOLUTE 0.03 K/uL (0-1); LYMPHOCYTES # (AUTO) 3.3 K/uL (1.0-4.8); LYMPHOCYTES % (AUTO) 37.7 % (21.0-51.0); MEAN CORPUSCULAR HEMOGLOBIN 31.1 pg (27.0-33.0); MEAN CORPUSCULAR HGB CONC 33.9 g/dL (32.0-36.0); MEAN CORPUSCULAR VOLUME 91.8 fL (79-99); MONOCYTES # (AUTO) 0.6 K/uL (0.1-1.0); NEUTROPHILS # (AUTO) 4.6 K/uL (1.8-7.7); NEUTROPHILS % (AUTO) 53.1 % (40.0-77.0); PLATELET COUNT (AUTO) 253 K/uL (130-400); RED CELL DISTRIBUTION WIDTH 12.5 % (11.0-15.5); WHITE BLOOD COUNT (AUTO) 8.7 K/uL (4.8-10.8)
[2024-12-01 23:30] LABS: ALBUMIN 3.7 g/dL (3.5-5.0); BILIRUBIN,TOTAL 0.4 mg/dL (0.2-1.0); TOTAL PROTEIN, SERUM 7.5 g/dL (6.0-8.3)
[2024-12-02] MEDS ORDERED: OMEP40CA21 PO (00:39)
[2024-12-02 02:48] VITALS: BP 176/88; PULSE 76; RESP 16; TEMP 98.1; O2SAT 99
--- NOTE | 2024-12-02 09:19 | HMCIMG ---
Exam Type: CHEST 1VW Clinical Information: Diastolic dysfunction, Nausea vomiting Comparison: None Findings: The lungs are clear of infiltrates. The heart is normal in size. The bony and soft tissue structures of the chest are unremarkable. Impression: Clear lungs.
== END 2024-12-02 01:18 | disposition home or self-care (01) ==
LOC: EDH 21:36
DX: I12.9 Hypertensive chronic kidney disease with stage 1 through stage 4 chronic kidney disease, or unspecified chronic kidney disease (principal); E11.22 Type 2 diabetes mellitus with diabetic chronic kidney disease; N18.9 Chronic kidney disease, unspecified; E11.65 Type 2 diabetes mellitus with hyperglycemia; K21.9 Gastro-esophageal reflux disease without esophagitis; E66.9 Obesity, unspecified; E78.00 Pure hypercholesterolemia, unspecified; Z79.899 Other long term (current) drug therapy; Z68.32 Body mass index [BMI] 32.0-32.9, adult
CPT/HCPCS: 36415; 71045; 80053; 83690; 84484; 85025; 93005; 99285